=== PATIENT | male | born 1935 | race Caucasian/White ===

== ENCOUNTER → 2024-05-13 08:42 | Outpatient (REF) | payer OTHER, MEDICARE, SELFPAY | LOC: HWRAD 08:42 | PROVIDERS: ATTENDING PHYSICIAN Internal Medicine Critical Care Medicine; FAMILY PHYSICIAN Internal Medicine Geriatric Medicine | DX: R91.1 Solitary pulmonary nodule (principal) | CPT/HCPCS: 71250 ==

== ENCOUNTER → 2024-05-18 10:45 | Outpatient (REF) | payer OTHER, MEDICARE, SELFPAY | LOC: HWRAD 10:45 | PROVIDERS: ATTENDING PHYSICIAN Internal Medicine Geriatric Medicine | DX: Z91.81 History of falling (principal); S00.12XA Contusion of left eyelid and periocular area, initial encounter; I48.19 Other persistent atrial fibrillation; Z79.01 Long term (current) use of anticoagulants; M79.645 Pain in left finger(s) | CPT/HCPCS: 70450; 73140 ==

== ENCOUNTER 2024-08-03 12:22 | Emergency (ER) | payer OTHER, SELFPAY ==
[2024-08-03 12:45] VITALS: BP 112/62
--- NOTE | 2024-08-03 16:05 | ED.GENMED ---
History of Present Illness
General
Chief Complaint: Musculo-Skeletal Complaint
Source: patient
Exam Limitations: none
Time Seen by Provider: 08/03/24 14:00
History of Present Illness
History of Present Illness:
Patient fell yesterday with a FOOSH injury to the right wrist. Also hit his head. He is on thinners. No syncope no headache no neck pain no other complaints. Complaining of right wrist and distal forearm pain.
Past History
Past History
ED Past Medical History: CAD, HTN and Hypercholesterolemia
ED Past Surgical History: Cardiac and Cholecystectomy
Social History
Personal:
Living: with family
Review of Systems
Review of Systems
All Other Systems: Not applicable
Phy Exam
Physical Exam
Physical Exam:
TRAUMA EXAM:
VITAL SIGNS: Vital signs reviewed, cooperative
DISTRESS: No active disease
FACE AND SCALP: Small area of ecchymosis lateral to the right eye
NECK: Supple nontender
RESPIRATORY: No distress, breath sounds normal, no tender chest wall
CARDIAC: No murmur, pulses equal and strong
ABDOMEN: Soft nontender
SKIN: Skin intact no bleeding, color normal
EXTREMITIES: Tenderness and ecchymosis to the distal right radius towards the wrist. Some snuffbox tenderness. Hand nontender. Extension flexion of the thumb normal. No ulnar collateral weakness.
NEUROLOGICAL: Alert, oriented, no motor deficits
PSYCH: Mood affect normal
Course
Orders/Labs/Results
Orders:
Orders
08/03/24 12:48
CR Hand - Right Min 3 Views Urgent
Comment:
Reason For Exam: fell yesterday landed on hand and wrist
Wrist, Right 3 Views [CR Wrist - Right Min 3 Views] Urgent
Comment:
Reason For Exam: fell and landed on hand and wrist
08/03/24 14:07
Thumb Spica Right-Treatment ONCE
08/03/24 14:57
CT Head W/o Iv Contrast Urgent
Comment:
Reason For Exam: Head trauma/anticoagulated
Vital Signs
Initial and Last Documented VS:
Initial Vital Signs
Temp Pulse Resp BP Pulse Ox
97.3 F 59 16 112/62 98
08/03/24 12:45 08/03/24 12:45 08/03/24 12:45 08/03/24 12:45 08/03/24 12:45
Last Documented Vital Signs
Temp Pulse Resp BP Pulse Ox
97.3 F 59 16 112/62 98
08/03/24 12:45 08/03/24 12:45 08/03/24 12:45 08/03/24 12:45 08/03/24 12:45
*Radiology
Radiology exam reviewed: preliminary read by ED provider (Negative for acute fracture) and radiology read reviewed (Distal chip distal radius. Likely old)
*Pulse Oximetry
Patient hypoxic: no
*Critical Care Note
Total Time (30-74mins, 75-104mins- exclusive of procedures): Not Applicable
Update Note
Update Note:
Head CT negative. Neurologically stable. As far as orthopedic issues there is a small chip to the distal radius over appears old. Splint and orthopedic follow-up
ED Attending Note
-
Portions of this chart may have been created with voice recognition software.� Occasional wrong word or��sound alike� substitutions may have occurred due to the inherent limitations of voice recognition software.
Discharge Plan
Departure
Patient Disposition: Home (Routine Discharge)
Date of Disposition: 08/03/24
Time of Disposition: 16:08
Patient with high blood pressure during this ER visit?: No
Discharge Problem:
Possible distal radius fracture, Head injury/anticoagulated
Instructions: Head injury in adults, Wrist fracture
Prescriptions:
No Action
atorvastatin 40 MG tablet
40 mg PO HS
amiodarone [Pacerone] 200 MG tablet
200 mg PO DAILY
tamsulosin 0.4 MG capsule
0.4 mg PO HS
coenzyme Q10 [Co Q-10] 300 MG capsule
300 mg PO DAILY
sacubitril-valsartan [Entresto] 1 EACH tablet
1 ea PO BID
rivaroxaban [Xarelto] 20 MG tablet
20 mg PO QPM Qty: 0 0RF
Rx Instructions:
HOLD post cath- OK to resume on 07/11 in PM
carvedilol 12.5 MG tablet
12.5 mg PO BID
cyanocobalamin (vitamin B-12) 1,000 MCG tablet
1,000 mcg PO DAILY
allopurinol 100 MG tablet
100 mg PO BID
aspirin 81 MG tablet,delayed release (DR/EC)
81 mg PO HS
furosemide 20 MG tablet
20 mg PO DAILY
cholecalciferol (vitamin D3) 1,000 UNITS tablet
1,000 units PO DAILY
potassium chloride [Klor-Con M20] 20 MEQ tablet,ER particles/crystals
20 meq PO DAILY
Referrals:
Kvng Carvalho MD [Active] - Follow up in 2-3 days
UNKNOWN - PT DOES,NOT KNOW [Family Provider] -
Interventions
Interventions:
*Risk Screen - Suicide Last Done: 08/03/24 12:45
*Neglect/Abuse Screening Last Done: 08/03/24 12:45
ED- Fall Risk Assessment Last Done: 08/03/24 16:37
*Nursing Disposition Last Done: 08/03/24 16:37
ED-Musculoskeletal Assessment Last Done: 08/03/24 16:36
Discharge Date and Time
Discharge Date/Time: 08/03/24 16:38
Print Language: PERSIAN
== END 2024-08-03 16:38 | disposition home or self-care (01) ==
LOC: EMR 12:22
PROVIDERS: EMERGENCY PHYSICIAN Emergency Medicine
DX: S00.11XA Contusion of right eyelid and periocular area, initial encounter (principal); S60.211A Contusion of right wrist, initial encounter; W19.XXXA Unspecified fall, initial encounter; I25.10 Atherosclerotic heart disease of native coronary artery without angina pectoris; I10 Essential (primary) hypertension; E78.00 Pure hypercholesterolemia, unspecified; Z90.49 Acquired absence of other specified parts of digestive tract
CPT/HCPCS: 29125; 99284; 70450; 73110; 73130

== ENCOUNTER 2024-08-26 09:22 | Emergency (ER) | payer OTHER, SELFPAY ==
[2024-08-26 09:32] VITALS: BP 100/61
[2024-08-26] MEDS: LIDOCAINE 4% PATCH 1 PATCH TOPICAL (12:30)
--- NOTE | 2024-08-26 12:56 | ED.GENMED ---
History of Present Illness
General
Chief Complaint: Musculo-Skeletal Complaint
Source: patient
Exam Limitations: none
Time Seen by Provider: 08/26/24 11:05
Nursing documentation reviewed up to this point in time: agreed with
History of Present Illness
History of Present Illness:
89-year-old male presenting to the emergency department today with concerns of fall off a 2 step ladder he does not think he hit his head but did hit his left ribs ongoing discomfort since this happened 3 days ago. Denies any chest pain shortness
of breath but does have some increased discomfort with deep breaths. Denies nausea vomiting numbness weakness no neck pain patient is on a blood thinner
Past History
Past History
ED Past Medical History: CAD, HTN and Hypercholesterolemia
ED Past Surgical History: Cardiac and Cholecystectomy
Social History
Personal:
Living: with family
Review of Systems
Review of Systems
Allergies reviewed?: Yes
All Other Systems: ROS reviewed and negative except as documented in HPI and ROS
Phy Exam
Physical Exam
Physical Exam:
GENERAL: Alert , in no apparent distress
EYE: pupils equal and reactive
NECK: Supple, no significant adenopathy.
ENT: o/p clr, mmm.
CARDIAC: Regular rate and rhythm .
LUNGS: Reproducible pain to the left lower lateral ribs clear breath sounds bilaterally, no acute respiratory distress, no wheezes/rales/rhonchi
ABDOMEN: Soft, without focal tenderness, no r/g, no cvat
NEUROLOGICAL: Alert and oriented, no focal neuro deficits
SKIN: Warm and dry, skin intact.
MUSCULOSKELETAL: No edema, well perfused.
PSYCH: Normal and appropriate interaction.
Course
Orders/Labs/Results
Orders:
Orders
08/26/24 09:37
Ribs, Left 3 View W/PA Chest CR [CR Ribs-left 3 Vw W/pa Chest] Urgent
Comment:
Reason For Exam: fall, pain
08/26/24 11:35
CT Head W/o Iv Contrast Urgent
Comment:
Reason For Exam: fall may have hit head, on thinner
Lidocaine [Lidocaine 4% Patch] 1 patch TOPICAL ONCE ONE
Apply Lidocaine patch(s) to:: left lower ribs
Incentive Spirometry [Rx Incentive Spirometry] [RESP] Urgent
Frequency: q1h while awake
Vital Signs
Initial and Last Documented VS:
Initial Vital Signs
Temp Pulse Resp BP Pulse Ox
97.7 F 78 16 100/61 96
08/26/24 09:32 08/26/24 09:32 08/26/24 09:32 08/26/24 09:32 08/26/24 09:32
Last Documented Vital Signs
Temp Pulse Resp BP Pulse Ox
97.6 F 74 18 125/75 96
08/26/24 13:01 08/26/24 13:01 08/26/24 13:01 08/26/24 13:01 08/26/24 13:01
MDM/Problems Addressed
MDM/Problems Addressed:
89-year-old male presenting to the emergency department today after a fall off 2 steps. He hit his left ribs ongoing pain there x-ray was performed that did not show any fractures potential small mount of atelectasis to the left lower. Patient
with normal pulse ox no fever. Was given incentive spirometer and medication for discomfort which improved symptoms. Head CT without emergent findings. Patient appear stable for outpatient management return precautions given.
*Critical Care Note
Total Time (30-74mins, 75-104mins- exclusive of procedures): Not Applicable
ED Attending Note
-
Portions of this chart may have been created with voice recognition software.� Occasional wrong word or��sound alike� substitutions may have occurred due to the inherent limitations of voice recognition software.
Discharge Plan
Departure
Patient Disposition: Home (Routine Discharge)
Date of Disposition: 08/26/24
Time of Disposition: 13:18
Patient with high blood pressure during this ER visit?: No
Condition: Good
Covid-19: Not Applicable
Discharge Problem:
Fall, Contusion of rib
Instructions: Rib injury in adults
Prescriptions:
New
lidocaine [AsperFlex (lidocaine)] 4 % adhesive patch,medicated
1 patch topical DAILY PRN (Reason: Pain) Qty: 5 0RF
No Action
atorvastatin 40 MG tablet
40 mg PO HS
amiodarone [Pacerone] 200 MG tablet
200 mg PO DAILY
tamsulosin 0.4 MG capsule
0.4 mg PO HS
coenzyme Q10 [Co Q-10] 300 MG capsule
300 mg PO DAILY
sacubitril-valsartan [Entresto] 1 EACH tablet
1 ea PO BID
rivaroxaban [Xarelto] 20 MG tablet
20 mg PO QPM Qty: 0 0RF
Rx Instructions:
HOLD post cath- OK to resume on 07/11 in PM
carvedilol 12.5 MG tablet
12.5 mg PO BID
cyanocobalamin (vitamin B-12) 1,000 MCG tablet
1,000 mcg PO DAILY
allopurinol 100 MG tablet
100 mg PO BID
aspirin 81 MG tablet,delayed release (DR/EC)
81 mg PO HS
furosemide 20 MG tablet
20 mg PO DAILY
cholecalciferol (vitamin D3) 1,000 UNITS tablet
1,000 units PO DAILY
potassium chloride [Klor-Con M20] 20 MEQ tablet,ER particles/crystals
20 meq PO DAILY
Referrals:
Raghu Martins MD [Family Provider] -
Activity Restrictions/Additional Instructions:
You came to the emergency department today with concerns after a fall. You likely of a rib contusion. Please use the lidocaine patch and Tylenol to help with symptoms. Please feel closely with your primary care doctor. Return to the emergency
department for any worsening, new or concerning symptoms.
Interventions
Interventions:
*Risk Screen - Suicide Last Done: 08/26/24 09:32
*General Assessment Last Done: 08/26/24 09:32
*Neglect/Abuse Screening Last Done: 08/26/24 09:32
*ED COVID-19 Vaccine History Last Done: 08/26/24 13:01
ED-Musculoskeletal Assessment Last Done: 08/26/24 13:06
ED- Neurological Assessment Last Done: 08/26/24 13:06
ED-Skin Assessment Last Done: 08/26/24 13:06
Discharge Date and Time
Print Language: CUBAN
[2024-08-26 13:01] VITALS: BP 125/75
== END 2024-08-26 13:30 | disposition home or self-care (01) ==
LOC: EMR 09:22
PROVIDERS: EMERGENCY PHYSICIAN Student in an Organized Health Care Education/Training Program; FAMILY PHYSICIAN Internal Medicine Geriatric Medicine
DX: S20.212A Contusion of left front wall of thorax, initial encounter (principal); W11.XXXA Fall on and from ladder, initial encounter
CPT/HCPCS: 99284; 70450; 71101

== ENCOUNTER 2024-09-17 10:06 | Emergency (ER) | payer OTHER, MEDICARE, SELFPAY ==
[2024-09-17] VITALS (7 sets, daily range): BP systolic 103–146; BP diastolic 55–73; BMI 25.4
--- NOTE | 2024-09-17 10:20 | ED.GENMED ---
History of Present Illness
General
Chief Complaint: Breathing Problem
Source: patient
Time Seen by Provider: 09/17/24 10:07
History of Present Illness
History of Present Illness:
89--year-old male on Xarelto presents complaining of increased pain to the bilateral lower chest. He fell about 3 to 4 weeks ago and injured his ribs. He states over the past several days he had more pain when he sits up and when he takes a deep
breath. He has not missed any doses of his blood thinner. He does not feel short of breath. He denies fever or cough. No hemoptysis. No abdominal pain. No vomiting. No other complaints at this time
Past History
Past History
ED Past Medical History: CAD, HTN and Hypercholesterolemia
ED Past Surgical History: Cardiac and Cholecystectomy
Social History
Personal:
Living: with family
Phy Exam
Physical Exam
Physical Exam:
General: Well-appearing male no acute respiratory distress
HEENT: Normocephalic atraumatic
Heart: Regular rate and rhythm no murmurs
Lungs: Clear no wheeze or Rales
Abdomen soft nontender
Extremities mild edema bilateral lower extremities
Scores
Heart Failure Risk
Heart Failure Risk Score: Not Applicable
Course
Orders/Labs/Results
Orders:
Orders
09/17/24 10:08
Electrocardiogram (*1) Urgent
Reason for Study: Shortness of Breath
EKG- Treatment ONCE
09/17/24 10:16
CR Chest - 2 Views Urgent
Comment:
Reason For Exam: sob
09/17/24 10:18
Complete Blood Count/With Diff Urgent
Comprehensive Metabolic Panel Urgent
NT-proBNP Urgent
Troponin I Urgent
Abnormal Lab Results
09/17/24
10:18
RBC 3.69 L 10^6/uL
(4.70-6.10)
MCV 106.0 H fL
(80.0-94.0)
MCH 35.2 H pg
(27.0-31.0)
Absolute Lymphs (auto) 0.9 L 10^3/uL
(1.2-3.4)
Lymphocytes % 13.7 L %
(20.5-51.1)
Monocytes % 9.7 H %
(1.7-9.3)
BUN 35 H mg/dl
(9-20)
Total Protein 6.0 L g/dl
(6.3-8.2)
Albumin 3.4 L g/dl
(3.5-5.0)
09/17/24 10:18
09/17/24 10:18
Vital Signs
Initial and Last Documented VS:
Initial Vital Signs
Pulse Resp BP
75 18 117/65
09/17/24 10:11 09/17/24 10:11 09/17/24 10:11
Last Documented Vital Signs
Temp Pulse Resp BP Pulse Ox
98.1 F 69 19 146/68 100
09/17/24 10:20 09/17/24 12:38 09/17/24 12:38 09/17/24 12:38 09/17/24 12:38
MDM/Problems Addressed
Differential Diagnosis Includes:
Increased pain in lower chest with motion and breathing and slightly to the touch. Consider persistent contusion or rib fracture versus pleural effusion. Unlikely to be PE secondary to anticoagulated state. Signs are stable. Will check for heart
failure or pneumonia with x-ray. Labs pending.
*Critical Care Note
Total Time (30-74mins, 75-104mins- exclusive of procedures): Not Applicable
Update Note
Update Note:
Chest x-ray shows no acute pulmonary edema or pneumonia. No rib fracture nor pneumothorax. BNP is lower than what it has been in the past. Does not appear volume overloaded. Troponin within normal limits. Patient ambulated without any drop in
the oxygen. Katie discomfort today is related to his fall 3 weeks ago with lingering chest wall discomfort. Family in the room upon reassessment no indication for admission family agreeable to discharge turn precautions were given
ED Attending Note
-
Portions of this chart may have been created with voice recognition software.� Occasional wrong word or��sound alike� substitutions may have occurred due to the inherent limitations of voice recognition software.
Discharge Plan
Departure
Patient Disposition: Home (Routine Discharge)
Date of Disposition: 09/17/24
Time of Disposition: 12:54
Patient with high blood pressure during this ER visit?: No
Discharge Problem:
Chest wall pain
Instructions: Shortness of Breath (Dyspnea) (DC)
Prescriptions:
No Action
atorvastatin 40 MG tablet
40 mg PO HS
amiodarone [Pacerone] 200 MG tablet
200 mg PO DAILY
tamsulosin 0.4 MG capsule
0.4 mg PO HS
coenzyme Q10 [Co Q-10] 300 MG capsule
300 mg PO DAILY
sacubitril-valsartan [Entresto] 1 EACH tablet
1 ea PO BID
rivaroxaban [Xarelto] 20 MG tablet
20 mg PO QPM Qty: 0 0RF
Rx Instructions:
HOLD post cath- OK to resume on 07/11 in PM
carvedilol 12.5 MG tablet
12.5 mg PO BID
cyanocobalamin (vitamin B-12) 1,000 MCG tablet
1,000 mcg PO DAILY
allopurinol 100 MG tablet
100 mg PO BID
aspirin 81 MG tablet,delayed release (DR/EC)
81 mg PO HS
furosemide 20 MG tablet
20 mg PO DAILY
cholecalciferol (vitamin D3) 1,000 UNITS tablet
1,000 units PO DAILY
potassium chloride [Klor-Con M20] 20 MEQ tablet,ER particles/crystals
20 meq PO DAILY
lidocaine [AsperFlex (lidocaine)] 4 % adhesive patch,medicated
1 patch topical DAILY PRN (Reason: Pain) Qty: 5 0RF
Referrals:
Raghu Martins MD [Family Provider] -
Activity Restrictions/Additional Instructions:
Continue current medication regimen. Return if worse otherwise follow-up with your doctors
Interventions
Interventions:
*Risk Screen - Suicide Last Done: 09/17/24 10:20
*General Assessment Last Done: 09/17/24 10:20
*Neglect/Abuse Screening Last Done: 09/17/24 10:20
*ED- Fall Risk Assessment Last Done: 09/17/24 10:20
*ED COVID-19 Vaccine History Last Done: 09/17/24 10:20
ED- Cardiac Assessment Last Done: 09/17/24 10:20
ED- Pulmonary Assessment Last Done: 09/17/24 10:20
Discharge Date and Time
Print Language: PANAMANIAN
[2024-09-17 10:31] LABS: % Basophils 0.9 % (0-2); % Eosinophils 2.6 % (0-6); % Immature Granulocytes 0.5 % (0-0.5); % Lymphocytes 13.7 % (20.5-51.1); % Monocytes 9.7 % (1.7-9.3); % Neutrophils 72.6 % (42.2-75.2); Absolute Basophils 0.1 10^3/uL (0-0.2); Absolute Eosinophils 0.2 10^3/uL (0-0.7); Absolute Lymphocytes 0.9 10^3/uL (1.2-3.4); Absolute Monocytes 0.6 10^3/uL (0.1-0.6); Absolute Neutrophils 4.8 10^3/uL (1.4-6.5); Hematocrit 39.1 % (39.0-52.0); Mean Corp Hgb Conc. 33.2 g/dL (33.0-37.0); Mean Corpuscular Hgb 35.2 pg (27.0-31.0); Mean Platelet Volume 8.5 fL (7.4-10.4); Nucleated Red Blood Cells % 0 % (-); Platelet Count 238 10^3/uL (130-400); Red Blood Cell Count 3.69 10^6/uL (4.70-6.10); Red Cell Dist. Width 14.4 % (11.5-14.5); White Blood Cell Count 6.6 10^3/uL (4.8-10.8)
[2024-09-17 10:42] LABS: ALT (SGPT) 19 U/L (0-50); AST (SGOT) 25 U/L (17-59); Albumin 3.4 g/dl (3.5-5.0); Alkaline Phosphatase 112 U/L (38-126); Blood Urea Nitrogen 35 mg/dl (9-20); Calcium 9.3 mg/dl (8.4-10.2); Carbon Dioxide 29 mmol/L (22-30); Chloride 104 mmol/L (98-107); Estimated Creatinine Clearance 40 ml/min; Glucose 95 mg/dl (70-99); Potassium 4.3 mmol/L (3.5-5.1); Sodium 137 mmol/L (135-145); Total Bilirubin 0.6 mg/dl (0.2-1.3); eGFR > 60.00
[2024-09-17 10:52] LABS: NT-proBNP 1120 pg/ml; Troponin I 0.018 ng/ml
== END 2024-09-17 13:20 | disposition home or self-care (01) ==
LOC: EMR 10:06
PROVIDERS: Physician Assistant; EMERGENCY PHYSICIAN Emergency Medicine; FAMILY PHYSICIAN Internal Medicine Geriatric Medicine
DX: R07.89 Other chest pain (principal); E78.00 Pure hypercholesterolemia, unspecified; I25.10 Atherosclerotic heart disease of native coronary artery without angina pectoris; I10 Essential (primary) hypertension; Z90.49 Acquired absence of other specified parts of digestive tract; Z79.01 Long term (current) use of anticoagulants
CPT/HCPCS: 99285; 71046; 80053; 83880; 84484; 85025; 93005

== ENCOUNTER → 2024-09-22 12:22 | Outpatient (REF) | payer OTHER, MEDICARE, SELFPAY | LOC: HWRAD 12:22 | PROVIDERS: ATTENDING PHYSICIAN Internal Medicine Geriatric Medicine | DX: R10.10 Upper abdominal pain, unspecified (principal) | CPT/HCPCS: 74150 ==

== ENCOUNTER 2024-10-09 18:02 | Emergency (ER) | payer OTHER, SELFPAY ==
[2024-10-09 18:07] VITALS: BP 100/64; BMI 28.8
[2024-10-09 18:45] LABS: % Basophils 0.7 % (0-2); % Eosinophils 0.2 % (0-6); % Immature Granulocytes 0.7 % (0-0.5); % Lymphocytes 16.5 % (20.5-51.1); % Monocytes 14.2 % (1.7-9.3); % Neutrophils 67.7 % (42.2-75.2); Absolute Lymphocytes 0.7 10^3/uL (1.2-3.4); Absolute Monocytes 0.6 10^3/uL (0.1-0.6); Absolute Neutrophils 2.9 10^3/uL (1.4-6.5); Hematocrit 35.5 % (39.0-52.0); Hemoglobin 11.9 g/dL (13.0-18.0); Mean Corp Hgb Conc. 33.5 g/dL (33.0-37.0); Mean Corpuscular Volume 104.4 fL (80.0-94.0); Mean Platelet Volume 8.9 fL (7.4-10.4); Nucleated Red Blood Cells % 0 % (-); Platelet Count 163 10^3/uL (130-400); Red Cell Dist. Width 14.8 % (11.5-14.5); White Blood Cell Count 4.3 10^3/uL (4.8-10.8)
[2024-10-09 18:59] LABS: ALT (SGPT) 14 U/L (0-50); AST (SGOT) 22 U/L (17-59); Albumin 3.6 g/dl (3.5-5.0); Alkaline Phosphatase 108 U/L (38-126); Blood Urea Nitrogen 32 mg/dl (9-20); Calcium 8.5 mg/dl (8.4-10.2); Carbon Dioxide 26 mmol/L (22-30); Chloride 106 mmol/L (98-107); Estimated Creatinine Clearance 34 ml/min; Glucose 96 mg/dl (70-99); Potassium 4.2 mmol/L (3.5-5.1); Sodium 139 mmol/L (135-145); Total Bilirubin 0.5 mg/dl (0.2-1.3); eGFR 53.17
[2024-10-09 19:02] VITALS: BP 133/52
--- NOTE | 2024-10-09 19:35 | ED.GENMED ---
History of Present Illness
General
Chief Complaint: Weakness
Source: patient and family
Time Seen by Provider: 10/09/24 19:03
History of Present Illness
History of Present Illness:
89-year-old male presents to the emergency room from [facility] for evaluation of weakness. Patient began feeling unwell this morning. He slept much later than normal and when he woke up recognized he had some muscle aches, generalized weakness
and a sore throat. He went to the medical center at [facility]. He had a COVID test performed and it was positive. His blood pressure was reported as 'low' there though I am not aware of the exact measurement. Therefore he was referred here
for further evaluation. Patient denies any chest pain, shortness of breath. He states he has been eating and drinking for well today.
Past History
Past History
ED Past Medical History: CAD, HTN and Hypercholesterolemia
ED Past Surgical History: Cardiac and Cholecystectomy
Social History
Personal:
Living: with family
Phy Exam
Physical Exam
Physical Exam:
General: Awake, Alert, Oriented X3. No acute distress. Appears stated age.
Vitals: Normotensive.
Head: Atraumatic
Eyes: Pupils equal, EOMI
Throat: Airway intact, no exudates
Neck: Trachea midline
Lungs: Clear and equal b/l
Heart: Regular rate, no murmurs
Abd: Soft, Nontender, No pulsatile mass
Neuro: Nonfocal
Skin: Warm, dry, no rash
Extremities: pulses equal b/l, no edema
Course
Orders/Labs/Results
Orders:
Orders
10/09/24 18:15
Complete Blood Count/With Diff Urgent
Comprehensive Metabolic Panel Urgent
10/09/24 19:34
CR Chest - 2 Views Urgent
Comment:
Reason For Exam: covid, weakness
10/09/24 19:37
Electrocardiogram (*1) Urgent
Reason for Study: Fatigue / Weakness
EKG- Treatment ONCE
Abnormal Lab Results
10/09/24
18:15
WBC 4.3 L 10^3/uL
(4.8-10.8)
RBC 3.40 L 10^6/uL
(4.70-6.10)
Hgb 11.9 L g/dL
(13.0-18.0)
Hct 35.5 L %
(39.0-52.0)
MCV 104.4 H fL
(80.0-94.0)
MCH 35.0 H pg
(27.0-31.0)
RDW 14.8 H %
(11.5-14.5)
Absolute Lymphs (auto) 0.7 L 10^3/uL
(1.2-3.4)
Immature Gran % 0.7 H %
(0-0.5)
Lymphocytes % 16.5 L %
(20.5-51.1)
Monocytes % 14.2 H %
(1.7-9.3)
BUN 32 H mg/dl
(9-20)
Total Protein 6.0 L g/dl
(6.3-8.2)
10/09/24 18:15
10/09/24 18:15
Vital Signs
Initial and Last Documented VS:
Initial Vital Signs
Temp Pulse Resp BP Pulse Ox
98 F 60 20 100/64 96
10/09/24 18:07 10/09/24 18:07 10/09/24 18:07 10/09/24 18:07 10/09/24 18:07
Last Documented Vital Signs
Temp Pulse Resp BP Pulse Ox
98 F 51 15 133/52 98
10/09/24 18:07 10/09/24 19:45 10/09/24 19:45 10/09/24 19:02 10/09/24 19:45
MDM/Problems Addressed
Differential Diagnosis Includes:
COVID, renal failure, dehydration, electrode abnormality
MDM/Problems Addressed:
Patient presents with fatigue, muscle ache, sore throat. He had a positive COVID test at [facility]. Symptoms seem highly consistent with this diagnosis. He evidently had a low blood pressure measurement prompting his referral to the emergency
room. Here his blood pressures all been normal. Clinically he looks quite well for an 89-year-old with or without COVID. He ambulated about the emergency department briskly and without any weakness or shortness of breath. Paxlovid
contraindicated due to amiodarone and Xarelto. Radiology interpretation of chest x-ray notes increased opacity in the right basilar region. This could be atelectasis or pneumonia but given the patient's had symptoms for less than 24 hours and has
a positive COVID test I do not believe there is an indication to treat for bacterial pneumonia. Particularly without fever and with him ambulating briskly without difficulty
*Radiology
Radiology exam reviewed: preliminary read by ED provider (Chronic changes on my review)
*Pulse Oximetry
Patient hypoxic: no
*EKG
Heart Rate: 54
Rate: bradycardiac
Rhythm: sinus
Interval: first degree heart block
QRS Pattern: normal QRS
Ischemia: no ischemia
*Operations Officer Interpretation
Rate: bradycardiac
Interpretation: abnormal
Rhythm: sinus
*Critical Care Note
Total Time (30-74mins, 75-104mins- exclusive of procedures): Not Applicable
ED Attending Note
-
Portions of this chart may have been created with voice recognition software.� Occasional wrong word or��sound alike� substitutions may have occurred due to the inherent limitations of voice recognition software.
Discharge Plan
Departure
Patient Disposition: Home (Routine Discharge)
Date of Disposition: 10/09/24
Time of Disposition: 21:08
Patient with high blood pressure during this ER visit?: No
Condition: Good
Discharge Problem:
COVID-19
Instructions: COVID-19 - ED discharge instructions
Prescriptions:
No Action
atorvastatin 40 MG tablet
40 mg PO HS
amiodarone [Pacerone] 200 MG tablet
200 mg PO DAILY
tamsulosin 0.4 MG capsule
0.4 mg PO HS
coenzyme Q10 [Co Q-10] 300 MG capsule
300 mg PO DAILY
sacubitril-valsartan [Entresto] 1 EACH tablet
1 ea PO BID
rivaroxaban [Xarelto] 20 MG tablet
20 mg PO QPM Qty: 0 0RF
Rx Instructions:
HOLD post cath- OK to resume on 07/11 in PM
carvedilol 12.5 MG tablet
12.5 mg PO BID
cyanocobalamin (vitamin B-12) 1,000 MCG tablet
1,000 mcg PO DAILY
allopurinol 100 MG tablet
100 mg PO BID
aspirin 81 MG tablet,delayed release (DR/EC)
81 mg PO HS
furosemide 20 MG tablet
20 mg PO DAILY
cholecalciferol (vitamin D3) 1,000 UNITS tablet
1,000 units PO DAILY
potassium chloride [Klor-Con M20] 20 MEQ tablet,ER particles/crystals
20 meq PO DAILY
lidocaine [AsperFlex (lidocaine)] 4 % adhesive patch,medicated
1 patch topical DAILY PRN (Reason: Pain) Qty: 5 0RF
Referrals:
UNKNOWN - PT DOES,NOT KNOW [Family Provider] -
Interventions
Interventions:
*Risk Screen - Suicide Last Done: 10/09/24 18:07
*General Assessment Last Done: 10/09/24 18:07
*Neglect/Abuse Screening Last Done: 10/09/24 18:07
*ED- Fall Risk Assessment Last Done: 10/09/24 18:07
*ED COVID-19 Vaccine History Last Done: 10/09/24 18:07
*Nursing Disposition Last Done: 10/09/24 21:38
ED- Cardiac Assessment Last Done: 10/09/24 18:11
ED- Neurological Assessment Last Done: 10/09/24 18:11
ED- Pulmonary Assessment Last Done: 10/09/24 18:11
Discharge Date and Time
Discharge Date/Time: 10/09/24 21:39
Print Language: KOREAN
== END 2024-10-09 21:39 | disposition home or self-care (01) ==
LOC: EMR 18:02
PROVIDERS: Emergency Medicine; EMERGENCY PHYSICIAN Emergency Medicine
DX: U07.1 COVID-19 (principal)
CPT/HCPCS: 99285; 71046; 80053; 85025; 93005

== ENCOUNTER → 2024-11-20 09:14 | Outpatient (REF) | payer OTHER, SELFPAY | LOC: HWRAD 09:14 | PROVIDERS: ATTENDING PHYSICIAN Internal Medicine Geriatric Medicine | DX: S80.12XA Contusion of left lower leg, initial encounter (principal); M25.562 Pain in left knee; W19.XXXA Unspecified fall, initial encounter | CPT/HCPCS: 73560 ==

== ENCOUNTER → 2024-12-31 12:46 | Outpatient (REF) | payer OTHER, SELFPAY | LOC: HWRCS 12:46 | PROVIDERS: ATTENDING PHYSICIAN Internal Medicine Cardiovascular Disease; FAMILY PHYSICIAN Internal Medicine Geriatric Medicine; REFERRING PHYSICIAN Internal Medicine Critical Care Medicine | DX: Z95.2 Presence of prosthetic heart valve (principal); R06.02 Shortness of breath; I42.9 Cardiomyopathy, unspecified; I25.10 Atherosclerotic heart disease of native coronary artery without angina pectoris; R04.2 Hemoptysis | CPT/HCPCS: 71046; 93306 ==

== ENCOUNTER → 2025-02-08 14:04 | Outpatient (REF) | payer OTHER, SELFPAY | LOC: HWRAD 14:04 | PROVIDERS: ATTENDING PHYSICIAN Internal Medicine; FAMILY PHYSICIAN Internal Medicine Geriatric Medicine | DX: M79.642 Pain in left hand (principal) | CPT/HCPCS: 73130 ==

== ENCOUNTER 2025-05-01 09:58 | Emergency (ER) | payer OTHER, SELFPAY ==
[2025-05-01 09:59] VITALS: BP 130/74
[2025-05-01 10:45] VITALS: BMI 27.9
[2025-05-01 12:00] VITALS: BP 134/76
[2025-05-01] MEDS: KEFLEX 500 MG PO (12:38)
--- NOTE | 2025-05-01 12:45 | ED.GENMED ---
History of Present Illness
General
Chief Complaint: Skin Surface Trauma
Source: patient
Exam Limitations: none
Time Seen by Provider: 05/01/25 10:37
Nursing documentation reviewed up to this point in time: agreed with
History of Present Illness
History of Present Illness:
Patient is an 89-year-old male with history of atrial fibrillation on Xarelto, hypertension who presents the emergency department with wound on right lower leg. Patient states that he tripped and fell on Saturday, striking his right lower leg on a
stone step outside. He states that he has been keeping the wound clean and covered with a bandage. However, he reports that it has continued to bleed and soak through his dressings. Swelling and bruising have increased over the past few days. He has
been able to weight bear without difficulty.
No fevers, chills, or purulent drainage. No numbness/tingling in affected extremity.
He did not strike his head, lose consciousness, or sustain any other injuries during fall. No lightheadedness, chest pain, or shortness of breath.
He is on Xarelto for atrial fibrillation.
Past History
Past History
ED Past Medical History: CAD, HTN and Hypercholesterolemia
ED Past Surgical History: Cardiac and Cholecystectomy
Social History
Personal:
Living: with family
Phy Exam
Physical Exam
Physical Exam:
Vitals: Patient's vital signs are stable. Afebrile
General: Patient is well appearing, no acute distress
Skin: Hematoma of right mid soares with surrounding mild erythema and warmth. 1cm wound in center of wound with scab formation and minimal oozing blood. No purulent drainage. No areas of fluctuance
Head: Normocephalic, atraumatic
Throat: Protecting airway
Neck: Normal ROM, no cervical spine tenderness
Cardiac: Regular rate
Pulm: No apparent respiratory distress
Abdomen: Nondistended
Extremities: Hematoma and healing wound to right lower extremity. No bony tenderness of right knee or ankle. 2+ palpable DP pulse with normal sensation. No calf tenderness.
Neuro: Grossly intact
Psychiatric: Normal affect.
Course
Orders/Labs/Results
Orders:
Orders
05/01/25 10:47
Tibia/Fibula, Right 2 View [CR Leg Tibia/fibula Right 2 Vw] Urgent
Comment:
Reason For Exam: fall
05/01/25 12:19
Cephalexin Monohydrate [Keflex] 500 mg PO NOW STA
Vital Signs
Initial and Last Documented VS:
Initial Vital Signs
Temp Pulse Resp BP Pulse Ox
97.8 F 77 16 130/74 98
05/01/25 09:59 05/01/25 09:59 05/01/25 09:59 05/01/25 09:59 05/01/25 09:59
Last Documented Vital Signs
Temp Pulse Resp BP Pulse Ox
98 F 80 16 134/76 98
05/01/25 12:00 05/01/25 12:00 05/01/25 12:00 05/01/25 12:00 05/01/25 12:45
MDM/Problems Addressed
Differential Diagnosis Includes:
Not limited to: fracture, contusion, hematoma, cellulitis, abrasion, etc
MDM/Problems Addressed:
89 year-old male with hematoma and abrasion of right lower leg sustained during mechanical fall three days ago. No head strike, loss of conscious, other injuries. Tetanus shot up-to-date. Vital stable. On exam, there is a hematoma of right mission
with abrasion that is oozing blood. Right lower leg appears overall a devious mildly feminist. Distal pulses intact with normal sensation. He has full range of motion and right ankle and right knee without pain.
X-ray of right tibia/fibula shows no evidence of acute fracture.
There is a scab formation on wound. No significant amount of beeding. I did irrigate gently new bandage applied and discussed elevation, ice. Given surrounding erythema and warmth � concern for developing infection. That w
Advised patient to hold Xarelto X one day. Very strict precautions discussed.
Chronic conditions affecting care:
Atrial fibrillation on xarelto.
Acute Exacerbation and/or Progression of Chronic Illness:
N/A
*Radiology
Radiology exam reviewed: preliminary read by ED provider (Xray of tibia/fibula reviewed by me - no acute fracture)
*Pulse Oximetry
SaO2: 98
Oxygen Mode of Delivery: Room air
Patient hypoxic: no
*EKG
Interpreted by ED Provider?: NA
*Financial Planner Interpretation
Rate: Financial Planner- N/A
*Critical Care Note
Total Time (30-74mins, 75-104mins- exclusive of procedures): Not Applicable
ED Attending Note
-
Portions of this chart may have been created with voice recognition software.� Occasional wrong word or��sound alike� substitutions may have occurred due to the inherent limitations of voice recognition software.
Discharge Plan
Departure
Patient Disposition: Home (Routine Discharge)
Date of Disposition: 05/01/25
Time of Disposition: 12:22
Patient with high blood pressure during this ER visit?: Yes
Condition: Good
Discharge Problem:
Hematoma of right lower leg, Leg wound, right
Instructions: Wound Care ([place]), [facility], Hematoma
Prescriptions:
New
cephalexin 500 mg capsule
500 mg PO QID 7 Days Qty: 28 0RF
No Action
atorvastatin 40 MG tablet
40 mg PO HS
amiodarone [Pacerone] 200 MG tablet
200 mg PO DAILY
tamsulosin 0.4 MG capsule
0.4 mg PO HS
coenzyme Q10 [Co Q-10] 300 MG capsule
300 mg PO DAILY
sacubitril-valsartan [Entresto] 1 EACH tablet
1 ea PO BID
rivaroxaban [Xarelto] 20 MG tablet
20 mg PO QPM Qty: 0 0RF
Rx Instructions:
HOLD post cath- OK to resume on 07/11 in PM
carvedilol 12.5 MG tablet
12.5 mg PO BID
cyanocobalamin (vitamin B-12) 1,000 MCG tablet
1,000 mcg PO DAILY
allopurinol 100 MG tablet
100 mg PO BID
aspirin 81 MG tablet,delayed release (DR/EC)
81 mg PO HS
furosemide 20 MG tablet
20 mg PO DAILY
cholecalciferol (vitamin D3) 1,000 UNITS tablet
1,000 units PO DAILY
potassium chloride [Klor-Con M20] 20 MEQ tablet,ER particles/crystals
20 meq PO DAILY
lidocaine [AsperFlex (lidocaine)] 4 % adhesive patch,medicated
1 patch topical DAILY PRN (Reason: Pain) Qty: 5 0RF
Referrals:
Raghu Martins MD [Family Provider, Internal Medicine] - Follow up in 2-3 days
Activity Restrictions/Additional Instructions:
RETURN TO THE EMERGENCY DEPARTMENT ANY FEVER, WORSENING REDNESS, SWELLING, OR PAIN IN RIGHT LOWER EXTREMITY, PURULENT DRAINAGE FROM WOUND, INABILITY TO AMBULATE, OR ANY OTHER CONCERNS
- As discussed, there was no evidence of a fracture on your x-ray imaging today in the emergency department.
- Pain and swelling is likely secondary to a hematoma. An antibiotic has been sent to your pharmacy to cover for a potential developing cellulitis or skin infection. Please take as directed.
- As discussed, hold your Xarelto for 1 day. Keep wound clean, dry, and covered. Elevate your leg and apply ice. You can take Tylenol as needed for pain.
- Follow-up with your primary care provider for further evaluation/management to ensure that your symptoms are improving in a few days. Contact information for the wound care center has also been provided.
Monitor your symptoms closely and return to the emergency department with any acute worsening/new symptoms or any other concerns
Interventions
Interventions:
*Risk Screen - Suicide Last Done: 05/01/25 09:59
*Neglect/Abuse Screening Last Done: 05/01/25 09:59
*Nursing Disposition Last Done: 05/01/25 12:48
ED-Skin Assessment Last Done: 05/01/25 11:32
Discharge Date and Time
Discharge Date/Time: 05/01/25 12:49
Print Language: NAMIBIAN
== END 2025-05-01 12:49 | disposition home or self-care (01) ==
LOC: EMR 09:58
PROVIDERS: EMERGENCY PHYSICIAN Emergency Medicine; FAMILY PHYSICIAN Internal Medicine Geriatric Medicine
DX: S80.11XA Contusion of right lower leg, initial encounter (principal); S80.811A Abrasion, right lower leg, initial encounter; W01.10XA Fall on same level from slipping, tripping and stumbling with subsequent striking against unspecified object, initial encounter; I48.91 Unspecified atrial fibrillation; I10 Essential (primary) hypertension; E78.00 Pure hypercholesterolemia, unspecified; I25.10 Atherosclerotic heart disease of native coronary artery without angina pectoris; Z79.01 Long term (current) use of anticoagulants; Z90.49 Acquired absence of other specified parts of digestive tract
CPT/HCPCS: 99283; 73590

== ENCOUNTER 2025-05-06 10:00 | Emergency (ER) | payer OTHER, SELFPAY ==
[2025-05-06 10:05] VITALS: BP 104/53
[2025-05-06 11:45] VITALS: BMI 28.4
[2025-05-06 11:53] LABS: Hematocrit 34.0 % (39.0-52.0); Hemoglobin 11.2 g/dL (13.0-18.0); Mean Corp Hgb Conc. 32.9 g/dL (33.0-37.0); Mean Corpuscular Volume 104.9 fL (80.0-94.0); Nucleated Red Blood Cells % 0 % (-); Platelet Count 172 10^3/uL (130-400); Red Cell Dist. Width 15.2 % (11.5-14.5)
[2025-05-06 12:57] LABS: ALT (SGPT) 13 U/L (0-50); AST (SGOT) 19 U/L (17-59); Albumin 3.3 g/dl (3.5-5.0); Alkaline Phosphatase 95 U/L (38-126); Blood Urea Nitrogen 36 mg/dl (9-20); Calcium 8.5 mg/dl (8.4-10.2); Carbon Dioxide 26 mmol/L (22-30); Chloride 106 mmol/L (98-107); Estimated Creatinine Clearance 36 ml/min; Glucose 105 mg/dl (70-99); Potassium 4.4 mmol/L (3.5-5.1); Sodium 137 mmol/L (135-145); Total Protein 5.8 g/dl (6.3-8.2); eGFR 58.17
--- NOTE | 2025-05-06 13:40 | ED.GENMED ---
History of Present Illness
General
Chief Complaint: Skin Problem
Source: patient and spouse
Time Seen by Provider: 05/06/25 10:11
History of Present Illness
History of Present Illness:
Note:
CHIEF COMPLAINT(S)
Right leg injury with redness and odor.
HISTORY OF PRESENT ILLNESS
The patient is an 89-year-old male who presented with a right leg injury sustained eight days ago. The patient initially sought care at an emergency facility on Saturday and then visited his family physician on Saturday. The patient reports increased
redness and a notable odor from the affected area. Despite being on cephalexin, which was prescribed on the previous Saturday, these symptoms have progressed. The patient describes significant sensitivity in the soares area, which is attributed to the
minimal soft tissue overlying the bone, potentially indicating a bone bruise. He denies any drainage resembling pus. The patient reports adhering to his physicians advice to cleanse with saline and elevate the leg with intermittent icing. There is
concern about potential infection due to the observed odor and surrounding erythema. The patient has been unable to shower normally, resulting in suboptimal wound hygiene.
PAST MEDICAL AND SURGICAL HISTORY
No diabetes reported.
REVIEW OF SYSTEMS
- Dermatological: Notable redness and odor around the leg wound.
- Neurological: Significant sensitivity in the right soares area.
- Musculoskeletal: Right mid-soares hematoma with skin loss.
PHYSICAL EXAM
General: Alert, no acute distress.
Skin: Warm, dry. Presence of right mid-soares hematoma with skin loss at the top portion and surrounding ecchymosis.
Eye Ears, nose, mouth and throat: Oral mucosa moist.
Cardiovascular: Normal peripheral perfusion, no edema, normal pulses in bilateral feet. Feet are warm and well-perfused.
Respiratory: Respirations are non-labored.
Neurological: Alert and oriented to person, place, time, and situation; sensitivity in right soares area.
PLAN
- Perform laboratory tests to check white blood cell count and general blood counts to assess for infection.
- Antibiotic treatment with cephalexin is already in place; evaluate the sufficiency of current antibiotic coverage.
- Leave the wound open for aeration and monitor for infection signs due to the presence of odor.
- Apply antibiotic ointment on the open wound.
- Continue with the elevation of the affected leg and icing as tolerated for comfort and to reduce swelling.
- Coordination with the patient�s family physician, located in [facility], for continuity of care.
DIFFERENTIAL DIAGNOSIS
The Differential Diagnosis includes, in no particular order and is not limited to:
1. Soft tissue infection (cellulitis)
2. Wound infection
3. Deep vein thrombosis
4. Osteomyelitis
5. Hematoma
6. Peripheral vascular disease
7. Contact dermatitis
8. Venous insufficiency ulcer
9. Neuropathic ulcer
10. Traumatic contusion
Disposition:
SUMMARY OF ENCOUNTER
The patient is an 89-year-old male with a hematoma on his right soares, presenting with surrounding redness and a slight odor. The dressings were somewhat saturated, and he has not been changing them frequently. Despite these symptoms, his white blood
cell count is normal at 7.7, with other chemistry profiles being grossly unremarkable. He is currently taking cephalexin but will be switched to doxycycline due to continued symptoms.
DISPOSITION
Discharge with instructions to follow-up with a wound care center.
ASSESSMENT
The patient likely has a wound infection, as evidenced by the redness and odor, despite no elevated white blood cell count.
PLAN
The plan includes transitioning the patient from cephalexin to doxycycline to better address the infection, advising outpatient follow-up with a wound care center, and emphasizing wound hygiene by changing dressings once or twice daily. The patient
should also keep the wound clean and dry, allowing it to dry before applying new dressings, and return if there is increased redness, fever, or any progression of symptoms.
MEDICATION RECONCILIATION
The patient was instructed to switch from cephalexin to doxycycline.
MEDICAL DECISION MAKING
-Complexity of Data Reviewed: Chronic conditions affecting care include consideration of the following differential diagnoses: soft tissue infection (cellulitis), wound infection, deep vein thrombosis, osteomyelitis, hematoma, peripheral vascular
disease, contact dermatitis, venous insufficiency ulcer, neuropathic ulcer, traumatic contusion.
-Data:
Category 1
Labs performed include checking the white blood cell count, which was normal at 7.7. Other chemistries were unremarkable.
Category 2
Additional history was provided by the patients spouse.
Category 3
Discussion with wound care specialists was planned for continuity of care.
-Risk:
Prescription medication was prescribed (doxycycline).
DIAGNOSIS
Wound infection, ICD-10: L08.9
Hematoma
Past History
Past History
ED Past Medical History: CAD, HTN and Hypercholesterolemia
ED Past Surgical History: Cardiac and Cholecystectomy
Social History
Personal:
Living: with family
Phy Exam
Physical Exam
Physical Exam:
.
Course
Orders/Labs/Results
Orders:
Orders
05/06/25 11:43
CMP [Comprehensive Metabolic Panel] Urgent
Complete Blood Count/With Diff Urgent
Abnormal Lab Results
05/06/25
11:43
RBC 3.24 L 10^6/uL
(4.70-6.10)
Hgb 11.2 L g/dL
(13.0-18.0)
Hct 34.0 L %
(39.0-52.0)
MCV 104.9 H fL
(80.0-94.0)
MCH 34.6 H pg
(27.0-31.0)
MCHC 32.9 L g/dL
(33.0-37.0)
RDW 15.2 H %
(11.5-14.5)
Absolute Lymphs (auto) 1.0 L 10^3/uL
(1.2-3.4)
Absolute Monos (auto) 1.2 H 10^3/uL
(0.1-0.6)
Lymphocytes % 13.3 L %
(20.5-51.1)
Monocytes % 15.7 H %
(1.7-9.3)
BUN 36 H mg/dl
(9-20)
Glucose 105 H mg/dl
(70-99)
Total Protein 5.8 L g/dl
(6.3-8.2)
Albumin 3.3 L g/dl
(3.5-5.0)
05/06/25 11:43
05/06/25 11:43
Vital Signs
Initial and Last Documented VS:
Initial Vital Signs
Temp Pulse Resp BP Pulse Ox
98.2 F 83 16 104/53 96
05/06/25 10:05 05/06/25 10:05 05/06/25 10:05 05/06/25 10:05 05/06/25 10:05
Last Documented Vital Signs
Temp Pulse Resp BP Pulse Ox
98.2 F 83 16 104/53 96
05/06/25 10:05 05/06/25 10:05 05/06/25 10:05 05/06/25 10:05 05/06/25 10:05
*Pulse Oximetry
SaO2: 96
Oxygen Mode of Delivery: Room air
Patient hypoxic: no
*Critical Care Note
Total Time (30-74mins, 75-104mins- exclusive of procedures): Not Applicable
ED Attending Note
-
Portions of this chart may have been created with voice recognition software.� Occasional wrong word or��sound alike� substitutions may have occurred due to the inherent limitations of voice recognition software.
Discharge Plan
Departure
Patient Disposition: Home (Routine Discharge)
Date of Disposition: 05/06/25
Time of Disposition: 13:40
Patient with high blood pressure during this ER visit?: No
Discharge Problem:
Infected hematoma
Instructions: Wound Care (DC), Cellulitis (skin infection) in adults (DC)
Prescriptions:
New
doxycycline monohydrate 100 mg tablet
100 mg PO BID Qty: 14 0RF
No Action
atorvastatin 40 MG tablet
40 mg PO HS
amiodarone [Pacerone] 200 MG tablet
200 mg PO DAILY
tamsulosin 0.4 MG capsule
0.4 mg PO HS
coenzyme Q10 [Co Q-10] 300 MG capsule
300 mg PO DAILY
sacubitril-valsartan [Entresto] 1 EACH tablet
1 ea PO BID
rivaroxaban [Xarelto] 20 MG tablet
20 mg PO QPM Qty: 0 0RF
Rx Instructions:
HOLD post cath- OK to resume on 07/11 in PM
carvedilol 12.5 MG tablet
12.5 mg PO BID
cyanocobalamin (vitamin B-12) 1,000 MCG tablet
1,000 mcg PO DAILY
allopurinol 100 MG tablet
100 mg PO BID
aspirin 81 MG tablet,delayed release (DR/EC)
81 mg PO HS
furosemide 20 MG tablet
20 mg PO DAILY
cholecalciferol (vitamin D3) 1,000 UNITS tablet
1,000 units PO DAILY
potassium chloride [Klor-Con M20] 20 MEQ tablet,ER particles/crystals
20 meq PO DAILY
lidocaine [AsperFlex (lidocaine)] 4 % adhesive patch,medicated
1 patch topical DAILY PRN (Reason: Pain) Qty: 5 0RF
cephalexin 500 mg capsule
500 mg PO QID 7 Days Qty: 28 0RF
Referrals:
Raghu Martins MD [Family Provider, Internal Medicine]
Activity Restrictions/Additional Instructions:
Please change your dressing twice a day. Keep wound clean and dry. Please follow-up with the wound care center in the next 1 week. Return immediately for fevers, increased redness, pustulous drainage or any other concerns.
Interventions
Interventions:
*Risk Screen - Suicide Last Done: 05/06/25 10:05
*General Assessment Last Done: 05/06/25 10:05
*Neglect/Abuse Screening Last Done: 05/06/25 10:05
*ED COVID-19 Vaccine History Last Done: 05/06/25 11:46
*ED Influenza Vaccine History Last Done: 05/06/25 11:46
ED-Skin Assessment Last Done: 05/06/25 11:56
Discharge Date and Time
Print Language: TURKISH
== END 2025-05-06 14:14 | disposition home or self-care (01) ==
LOC: EMR 10:00
PROVIDERS: EMERGENCY PHYSICIAN Emergency Medicine; FAMILY PHYSICIAN Internal Medicine Geriatric Medicine
DX: L08.9 Local infection of the skin and subcutaneous tissue, unspecified (principal); S80.11XA Contusion of right lower leg, initial encounter; X58.XXXA Exposure to other specified factors, initial encounter; I25.10 Atherosclerotic heart disease of native coronary artery without angina pectoris; I10 Essential (primary) hypertension; E78.00 Pure hypercholesterolemia, unspecified; Z79.82 Long term (current) use of aspirin
CPT/HCPCS: 99283; 80053; 85025

== ENCOUNTER → 2025-05-17 12:57 | Outpatient (REF) | payer OTHER, SELFPAY | LOC: HWRAD 12:57 | PROVIDERS: ATTENDING PHYSICIAN Nurse Practitioner Adult Health | DX: R91.1 Solitary pulmonary nodule (principal) | CPT/HCPCS: 71250 ==

== ENCOUNTER 2025-05-20 12:33 | Outpatient (REF) | payer OTHER, SELFPAY | END 2025-05-20 23:59 | disposition home or self-care (01) | LOC: WOUND 12:33 | PROVIDERS: ATTENDING PHYSICIAN Surgery; FAMILY PHYSICIAN Internal Medicine Geriatric Medicine | DX: L97.211 Non-pressure chronic ulcer of right calf limited to breakdown of skin (principal); S80.11XA Contusion of right lower leg, initial encounter; I73.9 Peripheral vascular disease, unspecified; I87.2 Venous insufficiency (chronic) (peripheral); Z79.01 Long term (current) use of anticoagulants; I48.91 Unspecified atrial fibrillation; I42.9 Cardiomyopathy, unspecified; G62.9 Polyneuropathy, unspecified; W22.8XXA Striking against or struck by other objects, initial encounter | CPT/HCPCS: 97597; 99204 ==

== ENCOUNTER → 2025-06-09 08:42 | Outpatient (REF) | payer OTHER, SELFPAY | LOC: RAD 08:42 | PROVIDERS: ATTENDING PHYSICIAN Surgery; FAMILY PHYSICIAN Internal Medicine Geriatric Medicine | DX: L97.211 Non-pressure chronic ulcer of right calf limited to breakdown of skin (principal); I73.9 Peripheral vascular disease, unspecified; I87.2 Venous insufficiency (chronic) (peripheral) | CPT/HCPCS: 93922; 93971 ==

== ENCOUNTER 2025-06-10 13:16 | Outpatient (REF) | payer OTHER, SELFPAY | END 2025-06-10 23:59 | disposition home or self-care (01) | LOC: WOUND 13:16 | PROVIDERS: ATTENDING PHYSICIAN Registered Nurse; FAMILY PHYSICIAN Internal Medicine Geriatric Medicine | DX: L97.211 Non-pressure chronic ulcer of right calf limited to breakdown of skin (principal); S80.11XA Contusion of right lower leg, initial encounter; I73.9 Peripheral vascular disease, unspecified; I87.2 Venous insufficiency (chronic) (peripheral); I48.91 Unspecified atrial fibrillation; I42.9 Cardiomyopathy, unspecified; G62.9 Polyneuropathy, unspecified; Z79.01 Long term (current) use of anticoagulants; X58.XXXA Exposure to other specified factors, initial encounter | CPT/HCPCS: 97597 ==

== ENCOUNTER 2025-06-17 10:16 | Outpatient (REF) | payer OTHER, SELFPAY | END 2025-06-17 23:59 | disposition home or self-care (01) | LOC: WOUND 10:16 | PROVIDERS: ATTENDING PHYSICIAN Registered Nurse; FAMILY PHYSICIAN Internal Medicine Geriatric Medicine | DX: L97.211 Non-pressure chronic ulcer of right calf limited to breakdown of skin (principal); S80.11XA Contusion of right lower leg, initial encounter; I73.9 Peripheral vascular disease, unspecified; I87.2 Venous insufficiency (chronic) (peripheral); Z79.01 Long term (current) use of anticoagulants; I48.91 Unspecified atrial fibrillation; I42.9 Cardiomyopathy, unspecified; G62.9 Polyneuropathy, unspecified; W22.8XXA Striking against or struck by other objects, initial encounter | CPT/HCPCS: 11042 ==

== ENCOUNTER 2025-06-28 10:10 | Outpatient (REF) | payer OTHER, SELFPAY | END 2025-06-28 23:59 | disposition home or self-care (01) | LOC: WOUND 10:10 | PROVIDERS: ATTENDING PHYSICIAN Registered Nurse; FAMILY PHYSICIAN Internal Medicine Geriatric Medicine | DX: L97.211 Non-pressure chronic ulcer of right calf limited to breakdown of skin (principal); S80.11XA Contusion of right lower leg, initial encounter; I73.9 Peripheral vascular disease, unspecified; I87.2 Venous insufficiency (chronic) (peripheral); Z79.01 Long term (current) use of anticoagulants; I48.91 Unspecified atrial fibrillation; I42.9 Cardiomyopathy, unspecified; G62.9 Polyneuropathy, unspecified; W22.09XA Striking against other stationary object, initial encounter | CPT/HCPCS: 11042 ==